=== PATIENT | female | born 1980 | race Caucasian/White ===

== ENCOUNTER 2023-10-08 00:45 | Emergency (ER) | payer SELFPAY ==
--- NOTE | 2023-10-08 01:06 | MHC.EDTECH ---
Patient brought to triage area,urine sample collected and sent to lab.
[2023-10-08 01:08] VITALS: BMI 27.8
[2023-10-08 01:09] LABS: Appearance Urine Clear; Color Urine Yellow; Glucose Urine UA Negative (Negative); Leukocyte Esterase Urine Moderate (2+) (Negative); Nitrite Urine Negative (Negative); Specific Gravity - Urine <= 1.005 (1.005-1.025); UMIC TRIGGER UACC YES; Urine Blood Negative (Negative); Urine Ketones Negative (Negative); Urine Protein Negative (Neg-Trace)
[2023-10-08 01:12] VITALS: BP 116/80; PULSE 67; RESP 18; TEMP 37.2; O2SAT 100
[2023-10-08 01:15] LABS: Bacteria Urine None Seen (None Seen); Hyaline Casts Urine 0-2 /LPF (0-2); RBC Urine 0-2 /HPF (0-2); Squamous Epithelial Cell Urine 0-2 /HPF (0-2); UACC Culture Trigger YES; WBC Urine 21-50 /HPF (0-5)
--- NOTE | 2023-10-08 01:16 | ED.GENADULT ---
HPI - General Adult General Chief complaint: General Medical Stated complaint: UTI Time Seen by Provider: 10/08/23 01:09 Source: patient, RN notes reviewed and old records reviewed Mode of arrival: ambulatory Limitations: no limitations History of Present Illness HPI narrative: 43-year-old female presents for evaluation of ?I think I have a UTI. ? 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 She woke up at 8:30 p.m., 5 hours ago complaining of burning with urination, lower abdominal pain and urinary frequency Patient reports that she gets some I frequent UTIs and her last UTI was about 2 months ago She feels pretty confident that she has a urinary tract infection. She is currently on her menstrual cycle Denies any abnormal discharge Denies any fevers or chills Related Data Previous Rx's ?Medication ?Instructions ?Recorded nitrofurantoin 100 mg PO Q12H 5 days #10 caps 10/08/23 monohydrate/macrocrystals 100 mg capsule (Macrobid) Allergies Allergy/AdvReac Type Severity Reaction Status Date / Time cephalexin [From KEFLEX] Allergy Unknown UNKNOWN Verified 10/08/23 01:09 amoxicillin Allergy Unknown Verified 10/08/23 01:09 clindamycin Allergy Unknown Verified 10/08/23 01:11 Review of Systems Constitutional: Constitutional: Denies body ache(s), Denies chills and Denies fever(s) Cardiovascular: Cardiovascular: Denies chest pain Genitourinary: Genitourinary: Denies hematuria and Reports pelvic pain Comments: Reports burning with urination and urinary frequency Physical Exam ED Vital Signs: Vital Signs - 24 hr 10/08/23 01:12 Temperature 98.9 F Pulse Rate 67 Respiratory Rate 18 Blood Pressure 116/80 Pulse Oximetry 100 Oxygen Delivery Method Room Air BMI result Body Mass Index 27.8 Const General: healthy appearing, comfortable, no acute distress, alert and awake Nutritional Appearance: well nourished Orientation/consciousness: patient oriented x3 HENMT Head: Yes normocephalic and Yes atraumatic Eyes Eyelids: Yes eyelids normal Conjunctivae: conjunctivae normal Sclerae: sclerae normal Corneas: corneas normal Pupils: Equal, round and reactive pupils present EOM: EOMs intact bilaterally Neck Neck: Yes full ROM Resp Effort & Inspection: normal respiratory effort, able to speak in complete sentences and not labored GI Inspection: No distended Palpation (GI): Soft to palpation, not firm, nontender, no guarding and not rigid Skin General skin exam: elasticity normal Neuro General: patient oriented x3 Cranial nerves: Yes Equal, round and reactive pupils present and Yes Bilaterally intact EOM present Cognition (Neuro): normal cognition Extrem Other: Moving all extremities well without any obvious deformities Medical Decision Making Medical Decision Making MDM Narrative: 43-year-old female presents for evaluation of dysuria. Her symptoms started just a few hours ago. She denies any concern for sexually transmitted infections. She is currently on her menstrual cycle and is not concerned about . Denies any abnormal vaginal bleeding or discharge. Patient's urine shows moderate leukocyte esterase with 21-50 white blood cells. No squamous epithelial cells to suggesting contamination. We will treat with Macrobid for UTI. Patient's vital signs are stable, she is afebrile, no findings to suggest systemic infection Differential Diagnosis Differential Diagnoses: The differential diagnosis associated with the presentation includes UTI Cystitis Pelvic pain Dysuria Lab Data Labs: Lab Results 10/08/23 Range/Units 01:02 Urine Color Yellow Urine Appearance Clear Urine pH 7.0 (5.0-9.0) Ur Specific Roff <= 1.005 (1.005-1.025) Urine Protein Negative (Neg-Trace) mg/dL Urine Glucose (UA) Negative (Negative) mg/dL Urine Ketones Negative (Negative) mg/dL Urine Blood Negative (Negative) Urine Nitrite Negative (Negative) Ur Leukocyte Esterase Moderate (2+) H (Negative) Urine RBC 0-2 (0-2) /HPF Urine WBC 21-50 H (0-5) /HPF Ur Squamous Epith Cells 0-2 (0-2) /HPF Urine Bacteria None Seen (None Seen) Hyaline Casts 0-2 (0-2) /LPF Discharge Plan Discharge Clinical Impression: Urinary tract infection Patient Disposition: Home, Self-Care Instructions: Urinary Tract Infection in Women (ED) Additional Instructions: Take Macrobid twice daily for the next 5 days Drink lots of fluids Follow-up with your primary doctor Return for new or worsening symptoms Prescriptions: New nitrofurantoin monohyd/m-cryst [Macrobid] 100 mg capsule 100 mg PO Q12H 5 Days Qty: 10 0RF Rx Instructions: must administer with a meal/food Print Language: Portuguese
[2023-10-08] MEDS: Nitrofurantoin Monohyd/M-Cryst 100 MG CAPSULE PO (01:28)
[2023-10-08 01:30] VITALS: BP 116/80; PULSE 67; RESP 18; TEMP 37.2; O2SAT 100
--- OUTSIDE RECORDS SUMMARY | 2023-10-08 01:31 | XMS_ITS | Continuity of Care Document ---
Author Organization [facility] Address [address], [address] [place] [address]- Care Team Providers Care Stave Log Cut Off Saw Operator Name Role Phone Not on Staff, PCP Primary Care Physician Unavail able [place] [facility] [place] [facility] [address] [place], [place] [address] Attending Physician: Megan Avila DO Admitting Physician: Megan Avila DO Referring Physician: Max Scanlon MD Allergies, Adverse Reactions, Alerts Substance Reaction Severity Status clindamycin Active amoxicillin Active Keflex Active valACYclovir Rash Active Immunizations Given and Recorded Vaccine Date Status Refusal Reason tetanus/diphtheria/pertussis, acel(Tdap) 09/02/15 Given tetanus/diphtheria/pertussis, acel(Tdap) 01/13/12 Given tetanus/diphtheria/pertussis, acel(Tdap) 09/27/10 Given Medications Compression Stockings See Instructions, # 1 pair, Refills 2, Tot. Refills 2, Maintenance, surgical, knee length 20-30 mm Hg, 07/08/16 16:16:00, orthostatic syncope, Compound Start Date: 07/08/16 Status: Ordered Flovent HFA 44 mcg/inh inhalation aerosol 2 puffs, Inhalation, 2 times a day, # 11 Gm, 1 Refills, Maintenance, 09/13/17 8:20:00, Aerosol Start Date: 09/13/17 Status: Ordered ibuprofen 800 mg oral tablet 800 mg, 1, tablet, By Mouth, 3 times a day, PRN, # 60 tablet, Refills 0, Tot. Refills 0, Maintenance, for pain, 11/05/19 22:43:00 EDT, Route to Pharmacy Electronically, [facility] #[id number] Start Date: 11/05/19 Status: Ordered ProAir HFA 90 mcg/inh inhalation aerosol with adapter 2, puffs, Inhalation, Every 6 hours, PRN, # 1 each, Refills 0, Tot. Refills 0, Maintenance, 09/06/17 11:44:07, Aerosol, Route to Pharmacy Electronically, [id number], [facility]/pharmacy #1972 Start Date: 09/06/17 Status: Ordered Splint See Instructions, # 1 units, Maintenance, Left fifth finger splint Wear as tolerated, 08/13/17 8:17:24, Compound Start Date: 08/13/17 Status: Ordered Tylenol 325 mg oral capsule 2 capsule = 650 mg, By Mouth, Every 4 hours, PRN as needed for pain, # 90 capsule, 0 Refills, Maintenance, 11/05/19 22:43:00 EDT, Capsule, [facility] #[id number] Start Date: 11/05/19 Status: Ordered Zithromax Z-Daron 250 mg oral tablet 1 pack/packet, By Mouth, Once, as directed on package labeling, # 6 tablet, 0 Refills, Soft Stop, 08/31/17 11:45:46, Tablet Start Date: 08/31/17 Status: Ordered Social History Social History Type Response Smoking Status Never smoker entered on: 09/02/15 Sex Patient Care team information Care Team Personnel Name: Not on Staff, PCP Position: [facility] Physician (General Medicine) Member Role: PCP Name: Max Scanlon MD Position: [facility] WATER RESOURCE AGENT MD Member Role: Lifetime WATER RESOURCE AGENT Physician Address: Address: [address] [place] [address] Care Team Related Persons Name: TONIA MATUTE Address: home [address] [place] [id number] Name: ADIS MOE
--- OUTSIDE RECORDS SUMMARY | 2023-10-08 01:31 | XMS_ITS | Continuity of Care Document ---
Author Organization [facility] Address [address] [place] [address]- Care Team Providers Care Compressed Gas Equipment Mechanic Name Role Phone Coco DOTSON, Ashley Primary Care Physician [place] [facility] [place] 11/05/19 - 11/06/[address] [address]- [facility] Encounter Diagnosis Ectopic of right ovary(Final) - 11/05/19 Discharge Disposition: A-D/C Home Attending Physician: Emiliano Frost MD Admitting Physician: Emiliano Frost MD Referring Physician: Not on Staff, Referring MD Allergies, Adverse Reactions, Alerts Substance Reaction Severity Status Keflex Active valACYclovir Rash Active Immunizations Given [...] 11/05/19 22:43:00 EDT, Route to Pharmacy Electronically, [facility] #[id number] Start Date: 11/05/19 Status: Ordered oxyCODONE 5 mg oral tablet 5 mg, 1, tablet, By Mouth, Every 6 hours, PRN, for 3 days, # 15 tablet, Refills 0, Tot. Refills 0, Acute 11/08/19 22:44:00 EDT, for pain, 11/05/19 22:44:00 EDT, Route to Pharmacy Electronically, [facility] #[id number], Partial fill upon patient r... Start Date: 11/05/19 Stop Date: 11/08/19 Status: Ordered ProAir HFA 90 mcg/inh inhalation aerosol with adapter 2, puffs, Inhalation, Every 6 hours, PRN, # 1 each, Refills 0, Tot. Refills 0, Maintenance, 09/06/17 11:44:07, Aerosol, Route to Pharmacy Electronically, [id number], [facility]/pharmacy #1972 Start Date: 09/06/17 Status: Ordered Splint See Instructions, # 1 units, Maintenance, Left fifth finger splint Wear as tolerated, 08/13/17 8:17:24, Compound Start Date: 08/13/17 Status: Ordered Tylenol 325 mg oral capsule 2 capsule = 650 mg, By Mouth, Every 4 hours, PRN as needed for pain, # 90 capsule, 0 Refills, Maintenance, 11/05/19 22:43:00 EDT, Capsule, [facility] #[id number] Start Date: 11/05/19 Status: Ordered Zithromax Z-Daron 250 mg oral tablet 1 pack/packet, By Mouth, Once, as directed on package labeling, # 6 tablet, 0 Refills, Soft Stop, 08/31/17 11:45:46, Tablet Start Date: 08/31/17 Status: Ordered Vital Signs Most recent to oldest [Reference Range]: 1 2 3 Oxygen Saturation [94-100 %] 99 % (11/05/19 11:30 PM) 98 % (11/05/19 11:15 PM) 98 % (11/05/19 11:00 PM) Pulse Rate [55-90 bpm] 71 bpm (11/05/19 8:20 PM) 76 bpm (11/05/19 8:07 PM) 72 bpm (11/05/19 3:19 PM) Blood Pressure [90-138/55-84 mm Hg] 123/71mm Hg (11/05/19 11:30 PM) 120/62mm Hg (11/05/19 11:15 PM) 124/64mm Hg (11/05/19 11:00 PM) Respiratory Rate [16-30 br/min] 8 br/min *L* (11/05/19 11:30 PM) 13 br/min *L* (11/05/19 11:15 PM) 16 br/min (11/05/19 11:00 PM) Temperature [96.8-100.4 DegF] 98.3 DegF (11/05/19 11:15 PM) 97.7 DegF (11/05/19 10:15 PM) 98.2 DegF (11/05/19 8:20 PM) Liters per Minute 4 L/min (11/05/19 10:15 PM) Mode of Delivery (Oxygen) Room air (11/06/19 12:00 AM) Room air (11/05/19 11:30 PM) Room air (11/05/19 11:15 PM) Blood pressure sites Arm, right (11/05/19 10:15 PM) Arm, left (11/05/19 8:20 PM) Arm, right (11/05/19 8:07 PM) Temperature Route Oral (11/05/19 8:20 PM) Oral (11/05/19 8:07 PM) Oral (11/05/19 3:19 PM) Social History Social History Type Response Smoking Status Never smoker entered on: 09/02/15 Sex
--- OUTSIDE RECORDS SUMMARY | 2023-10-08 01:31 | XMS_ITS | Continuity of Care Document ---
Author [facility] Address [address], [address] [place] [address]- Care Team Providers Care Heel Gouger Name Role Phone Not on Staff, PCP Primary Care Physician Unavail able Encounter [facility] [place] Date(s): 03/19/23 - 06/26/23 [facility] [address] [place], [place] [address] Attending Physician: Megan Avila DO Admitting Physician: [...] 11/05/19 22:43:00 EDT, Route to Pharmacy Electronically, [facility] #[id number] Start Date: 11/05/19 Status: Ordered ProAir HFA 90 mcg/inh inhalation aerosol with adapter 2, puffs, Inhalation, Every 6 hours, PRN, # 1 each, Refills 0, Tot. Refills 0, Maintenance, 09/06/17 11:44:07, Aerosol, Route to Pharmacy Electronically, [id number], [facility]/pharmacy #1972 Start Date: 09/06/17 Status: Ordered Splint See Instructions, # 1 units, Maintenance, Left fifth finger splint Wear as tolerated, 08/13/17 8:17:24, Compound Start Date: 08/13/17 Status: Ordered Tylenol 325 mg oral capsule 2 capsule = 650 mg, By Mouth, Every 4 hours, PRN as needed for pain, # 90 capsule, 0 Refills, Maintenance, 11/05/19 22:43:00 EDT, Capsule, [facility] #[id number] Start Date: 11/05/19 Status: Ordered Zithromax Z-Daron 250 mg oral tablet 1 pack/packet, By Mouth, Once, as directed on package labeling, # 6 tablet, 0 Refills, Soft Stop, 08/31/17 11:45:46, Tablet Start Date: 08/31/17 Status: Ordered Social History Social History Type Response Smoking Status Never smoker entered on: 09/02/15 Sex Patient Care team information Care Team Personnel Name: Not on Staff, PCP Position: [facility] Physician (General Medicine) Member Role: PCP Name: Max Scanlon MD Position: [facility] CAREER PLACEMENT SERVICES COUNSELOR MD Member Role: Lifetime CAREER PLACEMENT SERVICES COUNSELOR Physician Address: Address: [address] [place] [address] Care Team Related Persons Name: TONIA MATUTE Address: home [address] [place] [id number] Name: ADIS MOE
--- OUTSIDE RECORDS SUMMARY | 2023-10-08 01:31 | XMS_ITS | Continuity of Care Document ---
Author Organization [facility] ter Address [address] [place] [id number]- Care Team Providers Care Handbag Parts Cutter Name Role Phone Not on Staff, PCP Primary Care Physician Unavail able Encounter [facility] [place] Date(s): 05/05/22 - 05/05/[address] [address]- Encounter Diagnosis UTI (urinary tract infection)(Final) - 05/05/22 Discharge Disposition: A-D/C Home Attending Physician: Kailee Addison MD Admitting Physician: Kailee Addison MD Referring Physician: Not on Staff, Referring MD Allergies, Adverse Reactions, Alerts Substance Reaction Severity Status clindamycin Active amoxicillin Active Keflex Active valACYclovir Rash Active Immunizations Given and Recorded Vaccine Date Status Refusal Reason tetanus/diphtheria/pertussis, acel(Tdap) 09/02/15 Given tetanus/diphtheria/pertussis, acel(Tdap) 01/13/12 Given tetanus/diphtheria/pertussis, acel(Tdap) 09/27/10 Given Medications Bactrim DS 800 mg-160 mg oral tablet 1 tablet, By Mouth, 2 times a day, for 3 days, # 6 tablet, 0 Refills, Acute 05/08/22 19:00:00 EST, 05/05/22 19:00:00 EST, Tablet, [facility]/pharmacy #[id number], Partial fill upon patient request if the prescription is for a schedule II opioid drug., 1 tablet By... Start Date: 05/05/22 Stop Date: 05/08/22 Status: Ordered Compression Stockings See Instructions, # 1 pair, [...] 11/05/19 22:43:00 EDT, Route to Pharmacy Electronically, [facility] #[id number] Start Date: 11/05/19 Status: Ordered ProAir HFA 90 mcg/inh inhalation aerosol with adapter 2, puffs, Inhalation, Every 6 hours, PRN, # 1 each, Refills 0, Tot. Refills 0, Maintenance, 09/06/17 11:44:07, Aerosol, Route to Pharmacy Electronically, [id number], [facility]/pharmacy #1972 Start Date: 09/06/17 Status: Ordered Splint See Instructions, # 1 units, Maintenance, Left fifth finger splint Wear as tolerated, 08/13/17 8:17:24, Compound Start Date: 08/13/17 Status: Ordered Tylenol 325 mg oral capsule 2 capsule = 650 mg, By Mouth, Every 4 hours, PRN as needed for pain, # 90 capsule, 0 Refills, Maintenance, 11/05/19 22:43:00 EDT, Capsule, [facility] #[id number] Start Date: 11/05/19 Status: Ordered Zithromax Z-Daron 250 mg oral tablet 1 pack/packet, By Mouth, Once, as directed on package labeling, # 6 tablet, 0 Refills, Soft Stop, 08/31/17 11:45:46, Tablet Start Date: 08/31/17 Status: Ordered Vital Signs Most recent to oldest [Reference Range]: 1 2 3 Height 160 cm (05/05/22 7:28 PM) 160 cm (05/05/22 3:34 PM) Weight 62 kg (05/05/22 7:28 PM) 62 kg (05/05/22 3:34 PM) Oxygen Saturation [94-100 %] 99 % (05/05/22 7:28 PM) 100 % (05/05/22 3:34 PM) 100 % (05/05/22 3:24 PM) Pulse Rate [55-90 bpm] 66 bpm (05/05/22 7:28 PM) 69 bpm (05/05/22 3:34 PM) 74 bpm (05/05/22 3:24 PM) Body Mass Index [18.5-24.99 kg/m2] 24.22 kg/m2 (05/05/22 3:34 PM) Blood Pressure [90-138/55-84 mm Hg] 108/65mm Hg (05/05/22 7:28 PM) 110/60mm Hg (05/05/22 3:34 PM) Respiratory Rate [16-30 br/min] 17 br/min (05/05/22 7:28 PM) 16 br/min (05/05/22 3:34 PM) Temperature [96.8-100.4 DegF] 98 DegF (05/05/22 7:28 PM) 98.0 DegF (05/05/22 3:34 PM) Mode of Delivery (Oxygen) Room air (05/05/22 7:28 PM) Room air (05/05/22 3:34 PM) Room air (05/05/22 3:24 PM) Blood pressure sites Arm, left (05/05/22 3:34 PM) Temperature Route Oral (05/05/22 7:28 PM) Oral (05/05/22 3:34 PM) Dry Weight 62 kg (05/05/22 7:28 PM) 62 kg (05/05/22 3:34 PM) Weight Obtained Via Patient/family state d (05/05/22 3:34 PM) Dry Weight Obtained Via Patient/family s tated (05/05/22 3:34 PM) Social History Social History Type Response Smoking Status Never smoker entered on: 09/02/15 Sex Note * Jose Luis Vega: PERFORM Event Display: Patient Education Leaflets Authored Date: [id number] Bladder Infection,??Female (Adult) ?? [id number] Bladder Infection,??Female (Adult) Urine normally doesn't have any germs (bacteria) in it. But bacteria can get into the urinary tractfrom the skin around the rectum. Or they can travel in the blood from other parts of the body. Oncethey are in your urinary tract, they can cause infection in these areas: ??? The urethra (urethritis) ??? The bladder (cystitis) ??? The kidneys (pyelonephritis) The most common place for an infection is in the bladder. This is called a bladder infection. This is one of the most common infections in women because women have a shorter urethra than men. Bacteria have a shorter distance to travel to reach the bladder.. Women who have gone through menopause also lose the protection from estrogen that lowers the chance of getting a UTI. And some women are at higher risk because of their genes. Most bladder infections are easily treated. They are not serious unless the infection spreads to the kidney. The terms bladder infection, UTI, and cystitis are often used to describe the same thing. But they are not always the same. Cystitis is an inflammation of the bladder. The??most common cause of cystitis is an infection. Symptoms The infection causes inflammation in the urethra and bladder. This causes many of the symptoms. Themost common symptoms of a bladder infection are: ??? Pain or burning when urinating ??? Having to urinate more often than normal ??? Urgent need to urinate ??? Only a small amount of urine comes out ??? Blood in urine ??? Belly (abdominal) discomfort. This is often in the lower belly above the pubic bone. ??? Lower back pain ??? Cloudy urine ??? Strong- or bad-smelling urine ??? Unable to urinate(urinary retention) ??? Unable to hold urine in (urinary incontinence) ??? Fever ??? Loss of appetite ??? Confusion (in older adults) ?? Causes Bladder infections are not contagious. You can't get one from someone else, from a toilet seat, or from sharing a bath. The most common cause of bladder infections is bacteria from the bowels. The bacteria get onto the skin around the opening of the urethra. From there, they can get into the urine. Then they travel upto the bladder, causing inflammation and infection. This often happens because of: ??? Wiping incorrectly after urinating. Always wipe from front to back. ??? Bowel incontinence ??? . Duringpregnancy urinary tract changes raise the risk for infection. ??? Procedures such as having a catheter put in ??? Older age ??? Not emptying your bladder. This can give bacteria a chance to grow in your urine. ??? Fluid loss (dehydration) ??? Constipation ??? Having sex ??? Using a diaphragm for control? Treatment Bladder infections are diagnosed by a urine test and urine culture. They are treated with antibiotics. They often??clear up quickly without problems. Treatment helps prevent a more serious kidney infection. ?? Medicines Medicines can help in the treatment of a bladder infection: ??? Take antibiotics until they are used up, even if you feel better. It's important to finish them to make sure the infection has cleared.??? You can use acetaminophen or ibuprofen for pain, fever, or discomfort, unless another medicine was prescribed. If you have long-term (chronic) liver or kidney disease, talk with your healthcare??provider before using??these medicines. Also talk with your provider if you've ever had a stomach ulcer or GI (gastrointestinal) bleeding, or are taking blood-thinner medicines. ??? If you are given??phenazopydridine to reduce burning with urination, it will make your urine a bright orange color. This can stain clothing. ?? Care and prevention These self-care steps can help prevent future infections: ??? Drink plenty of fluids. This helps toprevent dehydration and flush out your bladder. Do this??unless you must restrict fluids for other health reasons, or your healthcare provider told you not to. ??? Clean yourself correctly after going to the bathroom. Wipe from front to back after using the toilet. This helps prevent the spread of bacteria. ??? Urinate more often. Don't try to hold urine in for a long time. ??? Wear loose-fittingclothes and cotton underwear. Don't wear tight- fitting pants. ??? Improve your diet and prevent constipation. Eat more fresh fruits and vegetables, and??fiber. Eat less junk foods and fatty foods. ??? Don't have sex until your symptoms are gone. ??? Don't have caffeine, alcohol, and spicy foods. These can irritate your bladder. ??? Urinate right after you have sex to flush out your bladder. ??? If you use control pills and have frequent bladder infections, discuss it with your healthcare provider. ?? Follow-up care Call your healthcare provider if all symptoms are not gone after 3 days of treatment. This is especially important if you have repeat infections. If a culture was done, you will be told if your treatment needs to be changed. If directed, you cancall??to find out the results. If X-rays were done, you will be told if the results will affect your??treatment. ?? Call 911 Call 911 if any of the following occur: ??? Trouble breathing ??? Hard to wake up or??confusion ???Fainting (loss of consciousness) ??? Fast heart rate ?? When to get medical advice Call your healthcare provider right away if any of these occur: ??? Fever of 100.4??F (38.0??C) or higher, or as directed by your healthcare provider ??? Symptoms are not better??after 3 days of treatment ??? Symptoms get worse or you have new symptoms ??? Back or belly pain that gets worse ??? Repeated vomiting, or unable to keep medicine down ??? Weakness or dizziness ??? Vaginal discharge ??? Pain, redness, or swelling in the outer vaginal area (labia) ?? Last Reviewed Date: 2021 ?? [id number] [employer]. All rights reserved. This information is not intended as a substitute for professional medical care. Always follow your healthcare professional's instructions. ?? Patient Care team information Care Team Personnel Name: Not on Staff, PCP Position: [facility] Physician (General Medicine) Member Role: PCP Name: Max Scanlon MD Position: [facility] ROLL COVERER MD Member Role: [employer] ROLL COVERER Physician Address: Address: [address] [place] [address] [facility], [address] Name: Jose Luis Vega Position: [facility] Associate Professional Member Role: ED Physician Payroll Secretary Address: Address: [address] [place] [address] Name: Zakiya Rivas RN Position: [facility] ED RN W/OE and Tasks Member Role: Patient Care Provider Name: Kailee Addison MD Position: [facility] Resident Member Role: Admitting Physician Address: Address: [address] [place] [address] Care Team Related Persons Name: TONIA MATUTE Address: [address] [address] Name: ADIS MOE
--- OUTSIDE RECORDS SUMMARY | 2023-10-08 01:31 | XMS_ITS | Continuity of Care Document ---
Author Organization [facility] ter Address [address] [place] [address]- Care Team Providers Care Adaptive Physical Education Teacher Name Role Phone Not on Staff, PCP Primary Care Physician Unavail able Encounter [facility] Date(s): 05/13/23 - 07/30/[address] [address] Attending Physician: Max Scanlon MD Admitting Physician: Max Scanlon MD Referring Physician: Max Scanlon MD Allergies, Adverse [...] 11/05/19 22:43:00 EDT, Route to Pharmacy Electronically, [facility] #[id number] Start Date: 11/05/19 Status: Ordered ProAir HFA 90 mcg/inh inhalation aerosol with adapter 2, puffs, Inhalation, Every 6 hours, PRN, # 1 each, Refills 0, Tot. Refills 0, Maintenance, 09/06/17 11:44:07, Aerosol, Route to Pharmacy Electronically, [id number], [facility]1972 Start Date: 09/06/17 Status: Ordered Splint See Instructions, # 1 units, Maintenance, Left fifth finger splint Wear as tolerated, 08/13/17 8:17:24, Compound Start Date: 08/13/17 Status: Ordered Tylenol 325 mg oral capsule 2 capsule = 650 mg, By Mouth, Every 4 hours, PRN as needed for pain, # 90 capsule, 0 Refills, Maintenance, 11/05/19 22:43:00 EDT, Capsule, [facility] #[id number] Start Date: 11/05/19 Status: Ordered Zithromax Z-Daron 250 mg oral tablet 1 pack/packet, By Mouth, Once, as directed on package labeling, # 6 tablet, 0 Refills, Soft Stop, 08/31/17 11:45:46, Tablet Start Date: 08/31/17 Status: Ordered Social History Social History Type Response Smoking Status Never smoker entered on: 09/02/15 Sex Patient Care team information Care Team Personnel Name: Not on Staff, PCP Position: [facility] Physician (General Medicine) Member Role: PCP Name: Max Scanlon MD Position: [facility] EXTENSION CLERK MD Member Role: Lifetime EXTENSION CLERK Physician Address: Address: [address] [place] [address] [facility], [address] Care Team Related Persons Name: TONIA MATUTE Address: home [address] [place] [id number] Name: ADIS MOE
--- OUTSIDE RECORDS SUMMARY | 2023-10-08 01:31 | XMS_ITS | Continuity of Care Document ---
Author Organization [facility] [facility] Address [address], [address] [place] [address]- Care Team Providers Care Well Service Derrick Worker Name Role Phone Not on Staff, PCP Primary Care Physician Unavail able Encounter [facility] Date(s): 05/27/23 - 06/26/23 [facility] [address] [place], [place] [address] Attending Physician: AdmBeto bautista Admitting Physician: AdmtrBeto Referring Physician: Admtr, Ar8 Allergies, Adverse Reactions, Alerts Substance Reaction Severity [...] 11/05/19 22:43:00 EDT, Route to Pharmacy Electronically, [facility] #[id number] Start Date: 11/05/19 Status: Ordered ProAir HFA 90 mcg/inh inhalation aerosol with adapter 2, puffs, Inhalation, Every 6 hours, PRN, # 1 each, Refills 0, Tot. Refills 0, Maintenance, 09/06/17 11:44:07, Aerosol, Route to Pharmacy Electronically, [id number], [facility]/pharmacy #1972 Start Date: 09/06/17 Status: Ordered Splint See Instructions, # 1 units, Maintenance, Left fifth finger splint Wear as tolerated, 08/13/17 8:17:24, Compound Start Date: 08/13/17 Status: Ordered Tylenol 325 mg oral capsule 2 capsule = 650 mg, By Mouth, Every 4 hours, PRN as needed for pain, # 90 capsule, 0 Refills, Maintenance, 11/05/19 22:43:00 EDT, [id number] Start Date: 11/05/19 Status: Ordered Zithromax Z-Daron 250 mg oral tablet 1 pack/packet, By Mouth, Once, as directed on package labeling, # 6 tablet, 0 Refills, Soft Stop, 08/31/17 11:45:46, Tablet Start Date: 08/31/17 Status: Ordered Social History Social History Type Response Smoking Status Never smoker entered on: 09/02/15 Sex Patient Care team information Care Team Personnel Name: Not on Staff, PCP Position: [facility] Physician (General Medicine) Member Role: PCP Name: Max Scanlon MD Position: [facility] FINE PATCHER MD Member Role: Lifetime FINE PATCHER Physician Address: Address: [address] [place] [address] [address] Care Team Related Persons Name: TONIA MATUTE Address: home [address] [place] [id number] Name: ADIS MOE
--- OUTSIDE RECORDS SUMMARY | 2023-10-08 01:31 | XMS_ITS | Continuity of Care Document ---
Author Organization [facility] ter Address [address] [place] [address]- Care Team Providers Care Time Study Clerk Name Role Phone Not on Staff, PCP Primary Care Physician Unavail able [place] [facility] [place] 11/24/20 - 11/25/[address] [address]- Discharge Disposition: A-D/C Home Attending Physician: Tahira Smith MD Admitting Physician: Tahira Smith MD Referring Physician: Not on Staff, Referring [...] 11/05/19 22:43:00 EDT, Route to Pharmacy Electronically, [facility] #[id number] Start Date: 11/05/19 Status: Ordered ProAir HFA 90 mcg/inh inhalation aerosol with adapter 2, puffs, Inhalation, Every 6 hours, PRN, # 1 each, Refills 0, Tot. Refills 0, Maintenance, 09/06/17 11:44:07, Aerosol, Route to Pharmacy Electronically, [id number], [facility] Start Date: 09/06/17 Status: Ordered Splint See Instructions, # 1 units, Maintenance, Left fifth finger splint Wear as tolerated, 08/13/17 8:17:24, Compound Start Date: 08/13/17 Status: Ordered Tylenol 325 mg oral capsule 2 capsule = 650 mg, By Mouth, Every 4 hours, PRN as needed for pain, # 90 capsule, 0 Refills, Maintenance, 11/05/19 22:43:00 EDT, [facility]ule[id number] Start Date: 11/05/19 Status: Ordered Zithromax Z-Daron 250 mg oral tablet 1 pack/packet, By Mouth, Once, as directed on package labeling, # 6 tablet, 0 Refills, Soft Stop, 08/31/17 11:45:46, Tablet Start Date: 08/31/17 Status: Ordered Results Radiology Reports * Exam Date Time Procedure Performing Provider Status 11/25/20 12:25 AM Foot Min 3 Views Left Pranav Dennison son; Auth (Verified) Notes: (Foot Min 3 Views Left) Reason For Exam: with Pain;Trauma RESULT: Foot Min 3 Views Left Ankle Min 3 Views Left, Foot Min 3 Views Left Hx of Present Illness: pt was walking and suddenly heard a pop in her L ankle. +swelling and bruising; 10 10 pain with movement; Reason: Trauma; with Pain; Clinical Question(s): Fracture. COMPARISON: None. FINDINGS: No evidence of acute or healing fracture or bone lesion. Intact ankle mortise and talar dome. No arthritic changes. Normal soft tissues. IMPRESSION: No acute displaced fracture. I have personally reviewed the images and I agree with this report. WSN: [id number] Ordering Physician: Susan Bautista Dictated By: Wiliam Welch MD Dictated Date/Time: 11/25/20 8:40 am Reviewed By: Joan Galloway MD Signed By: Joan Galloway MD Signed Date/Time: 11/25/20 8:45 am Transcribed By: ANGIE Transcribed Date/Time: 11/25/20 8:15 am * Exam Date Time Procedure Performing Provider Status 11/25/20 12:25 AM Ankle Min 3 Views Left Jesi , All tano; Auth (Verified) Notes: (Ankle Min 3 Views Left) Reason For Exam: with Pain;Trauma RESULT: Ankle Min 3 Views Left Ankle Min 3 Views Left, Foot Min 3 Views Left Hx of Present Illness: pt was walking and suddenly heard a pop in her L ankle. +swelling and bruising; 10 10 pain with movement; Reason: Trauma; with Pain; Clinical Question(s): Fracture. COMPARISON: None. FINDINGS: No evidence of acute or healing fracture or bone lesion. Intact ankle mortise and talar dome. No arthritic changes. Normal soft tissues. IMPRESSION: No acute displaced fracture. I have personally reviewed the images and I agree with this report. WSN: [id number] Ordering Physician: Susan Bautista Dictated By: Wiliam Welch MD Dictated Date/Time: 11/25/20 8:40 am Reviewed By: Joan Galloway MD Signed By: Joan Galloway MD Signed Date/Time: 11/25/20 8:45 am Transcribed By: ANGIE Transcribed Date/Time: 11/25/20 8:15 am Vital Signs Most recent to oldest [Reference Range]: 1 2 Oxygen Saturation [94-100 %] 100 % (11/25/20 12:04 AM) Pulse Rate [55-90 bpm] 57 bpm (11/25/20 12:04 AM) Blood Pressure [90-138/55-84 mm Hg] 114/ 72mm Hg (11/25/20 12:04 AM) Respiratory Rate [16-30 br/min] 20 br/mi n (11/25/20 3:56 AM) 18 br/min (11/25/20 12:04 AM) Temperature [96.8-100.4 DegF] 99.0 DegF (11/25/20 12:04 AM) Mode of Delivery (Oxygen) Room air (11/25/20 12:04 AM) Blood pressure sites Arm, right (11/25/20 12:04 AM) Temperature Route Oral (11/25/20 12:04 AM) Social History Social History Type Response Smoking Status Never smoker entered on: 09/02/15 Sex
== END 2023-10-08 01:31 | disposition home or self-care (01) ==
LOC: HO.ED 01:30
PROVIDERS: Emergency Provider Internal Medicine
DX: N39.0 Urinary tract infection, site not specified (principal); Z87.440 Personal history of urinary (tract) infections
CPT/HCPCS: 81001; 87086; 99283; 99284

== ENCOUNTER 2023-10-18 07:36 | Emergency (ER) | payer SELFPAY ==
[2023-10-18 07:50] VITALS: BP 154/82; PULSE 66; RESP 18; TEMP 36.7; O2SAT 99; BMI 26.6
[2023-10-18 08:43] LABS: Appearance Urine Clear; Color Urine Yellow; Glucose Urine UA Negative (Negative); Leukocyte Esterase Urine Negative (Negative); Nitrite Urine Negative (Negative); PH 6.5 (5.0-9.0); Specific Gravity - Urine <= 1.005 (1.005-1.025); Urine Blood Negative (Negative); Urine Ketones Negative (Negative); Urine Protein Negative (Neg-Trace)
[2023-10-18 11:13] LABS: CT PCR DETECTED (Not Detect.); NG PCR NOT DETECTED (Not Detect.)
--- NOTE | 2023-10-18 11:23 | ED.FEMALEGU ---
HPI - Female Genitourinary General Chief complaint: Urogenital-Female Stated complaint: STD, chlamydia ? Time Seen by Provider: 10/18/23 09:48 Source: patient Mode of arrival: ambulatory Limitations: no limitations History of Present Illness HPI Narrative: 43-year-old female presents to ED for vaginal discharge. Patient's partner informed her that he tested positive for chlamydia and she should get treated. Patient admits to foul odor green vaginal discharge. patient states no medical history and is healthy Related Data Previous Rx's ?Medication ?Instructions ?Recorded nitrofurantoin 100 mg PO Q12H 5 days #10 caps 10/08/23 monohydrate/macrocrystals 100 mg capsule (Macrobid) doxycycline hyclate 100 mg capsule 100 mg PO BID 7 days #14 caps 10/18/23 metronidazole 500 mg tablet 500 mg PO BID 7 days #14 tabs 10/19/23 Allergies Allergy/AdvReac Type Severity Reaction Status Date / Time cephalexin [From KEFLEX] Allergy Unknown UNKNOWN Verified 10/08/23 01:09 amoxicillin Allergy Unknown Verified 10/08/23 01:09 azithromycin Allergy Rash Verified 10/18/23 07:53 clindamycin Allergy Unknown Verified 10/08/23 01:11 Review of Systems Review of Systems: green foul vaginal odor Yes all other systems are reviewed and are negative PMFSH Social History Social History Advance Directives: No Advance Directives Information Provided: No Physical Exam Vital Signs: Vital Signs: Last Vital Signs Temp 98.3 F 10/18/23 12:53 Pulse 69 10/18/23 12:53 Resp 16 10/18/23 12:53 BP 156/79 H 10/18/23 12:53 Pulse Ox 100 10/18/23 12:53 O2 Del Method Room Air 10/18/23 12:53 BMI result Body Mass Index 26.6 Const: General: cooperative, healthy appearing, comfortable, no acute distress, well developed, alert, awake and Physically active Orientation/consciousness: oriented to person, oriented to place, oriented to time and patient oriented x3 HEENT: Head: Yes normal to inspection, Yes No palpable skull fracture present, Yes normocephalic, Yes atraumatic and No abrasion Eyes: General: appearance normal, both eyes and all related structures Neck: Neck: Yes normal visual inspection, Yes full ROM, Yes no lymphadenopathy, Yes no meningeal signs, Yes trachea midline, Yes supple, No anterior neck swelling and No tender Chest: Chest palpation & inspection: normal inspection of the chest and normal palpation of entire chest wall Resp: Effort & Inspection: normal respiratory effort and able to speak in complete sentences Auscultation: clear to auscultation bilaterally Cardio: Jugular venous distension: no JVD Heart sounds: S1 normal heart sound present and S2 normal heart sound present GI: Inspection: Yes normal to inspection Palpation (GI): Soft to palpation, not firm, nontender, no guarding and not rigid : General: Yes no CVA tenderness External Female Exam: normal external appearance Speculum Exam - Vagina: abnormal vaginal discharge (green) malodorous Speculum Exam - Cervix: normal appearance of the cervix Bimanual exam- vagina & uterus: normal bimanual exam Bimanual Exam- Adnexa, other: normal adnexae Back/Spine/Pelvis: Back: no CVA tenderness and No back tenderness Skin: General skin exam: no rashes or lesions noted, elasticity normal and turgor normal Neuro: General: oriented to person, oriented to place, oriented to time, patient oriented x3, gait normal, tone normal, moves all extremities, Normal light touch and pain sensation, no meningeal signs, no focal motor deficits, CN's II-XI intact bilaterally and normal sensation to monofilament Extrem: General: Yes normal to inspection, Yes full ROM and Yes capillary refill normal Psych: Appearance: grossly normal, well kempt and not disheveled Medical Decision Making Medical Decision Making [facility] Narrative: 43 female presents to ED for exposure to chlamydia presently positive for chlamydia on urine test. Patient would like complete pelvic exam to check for other STDs. Patient states having unprotected sex since june with this partner. patient states no fever or chills. Patient treated emperically for syphyllis and chlamydia. gonohrrea is negative. patient given information for [facility] to be tested for HIV. Due to allergies patient will be given doxycline for syphillis and chlamydia. Differential Diagnosis Differential Diagnoses: The differential diagnosis associated with the presentation includes (CHlamydia, Gonorrhea, trich, BV, syphyliis, ) Admission/Observation Consideration of admission/observation: Escalation of care including admission/observation considered Lab Data [facility] Lab Attestation statement: I reviewed the patient's lab results. Labs: Lab Results 0410/18/23 10/18/23 Range/Units 08:33 12:23 12:41 Urine Color Yellow Urine Appearance Clear Urine pH 6.5 (5.0-9.0) Ur Specific [place] <= 1.005 (1.005-1.025) Urine Protein Negative (Neg-Trace) mg/dL Urine Glucose (UA) Negative (Negative) mg/dL Urine Ketones Negative (Negative) mg/dL Urine Blood Negative (Negative) Urine Nitrite Negative (Negative) Ur Leukocyte Esterase Negative (Negative) Urine Test NEGATIVE (NEGATIVE) T.pallidum Ab (EIA) Nonreactive (Nonreactive) Soila species DNA Cancelled Chlam trachomat DNA PCR DETECTED A (Not Detect.) Gardnerella DNA Probe Cancelled N.gonorrhoeae DNA (PCR) NOT DETECTED (Not Detect.) Trichomonas DNA Probe Cancelled Independent Historian Clinical information obtained from an independent historian. History obtained from or confirmed by: Other (patient) Prescription Management I considered prescription management with: Antibiotic Discharge Plan Discharge Clinical Impression: Chlamydia Patient Disposition: Home, Self-Care Instructions: Chlamydia (ED) Additional Instructions: You came back positive for chlamydia. Recommend being compliant with doxycycline. Recommend follow-up with [facility] for other testing such as HIV and other STDs. return to the ED immediately for any abdominal pain, flank pain, fever, chills, profuse vaginal discharge, fever, chills, nausea, vomiting, or any other concerning symptoms. Prescriptions: New doxycycline hyclate 100 mg capsule 100 mg PO BID 7 Days Qty: 14 0RF metronidazole 500 mg tablet 500 mg PO BID 7 Days Qty: 14 0RF No Action nitrofurantoin monohyd/m-cryst [Macrobid] 100 mg capsule 100 mg PO Q12H 5 Days Qty: 10 0RF Rx Instructions: must administer with a meal/food Stand Alone Forms: Work/School Release Interventions: ED Discharge Assessment Last Done: 10/18/23 12:53 Discharge Date/Time: 10/18/23 12:54 Print Language: Setswana
--- NOTE | 2023-10-18 12:42 | PC.NURSE ---
this RN w/ present during pelvic exam completed by PA. pt tolerated exam well, no c/o pain. swabs sent to lab
[2023-10-18 12:47] LABS: UPreg QC Valid YES; Urine Pregnancy NEGATIVE (NEGATIVE)
[2023-10-18 12:53] VITALS: BP 156/79; PULSE 69; RESP 16; RESP 18; TEMP 36.8; O2SAT 100
[2023-10-18 13:08] LABS: Syphilis Screen Nonreactive (Nonreactive)
== END 2023-10-18 12:54 | disposition home or self-care (01) ==
PROVIDERS: Physician Assistant; Emergency Provider Emergency Medicine
DX: A74.9 Chlamydial infection, unspecified (principal); Z72.51 High risk heterosexual behavior
CPT/HCPCS: 0353U; 36415; 81003; 81025; 86780; 87480; 87510; 87660; 99283

== ENCOUNTER 2024-06-17 09:07 | Emergency (ER) | payer OTHER, SELFPAY ==
--- NOTE | ~2024-06-17 | CT_ITS ---
EXAMINATION: CT ABDOMEN AND PELVIS WITHOUT CONTRAST CLINICAL INFORMATION: Right flank pain and hematuria COMPARISON: None available. TECHNIQUE: Multidetector volumetric imaging was performed from the superior aspect of the liver through the pubic symphysis. Sagittal and coronal reformatted images were obtained on the technologist's workstation. This CT examination was performed using dose optimization techniques as appropriate, variously including the following: *Automated exposure control *Adjustment of mA and/or kV according to patient size (this includes techniques or standardized protocols for targeted exams where dose is matched to indication/reason for exam; i.e. extremities or head) *Use of iterative reconstruction technique DLP: 488 mGy-cm FINDINGS: LUNG BASES: Partially visualized bilateral breast implants. No pneumothorax. No large pleural effusion. LIVER, GALLBLADDER, AND BILIARY TREE: The liver is normal in size, shape, and attenuation. No focal hepatic lesion or biliary ductal dilatation is present. The gallbladder is unremarkable with no evidence of radiopaque gallstones, gallbladder wall thickening, or obvious pericholecystic inflammatory changes. PANCREAS: Unremarkable. SPLEEN: Unremarkable. ADRENAL GLANDS: Unremarkable. KIDNEYS AND URETERS: The kidneys are normal in size, shape, and attenuation. No hydronephrosis, hydroureter, or calculi seen. No perinephric stranding. BLADDER: Unremarkable. GASTROINTESTINAL TRACT: The small and large bowel are unremarkable. The appendix is unremarkable. ABDOMINAL WALL: Small fat filled umbilical hernia. LYMPH NODES: No enlarged lymph nodes or size criteria. VASCULAR: Abdominal aorta is nonaneurysmal. PELVIC VISCERA: Anteverted uterus. OSSEOUS STRUCTURES: Sclerotic focus right pubic symphysis physically representing a bone island. CT/CT abdomen pelvis wo IV con IMPRESSION: 1. No acute process of the abdomen or pelvis identified. 2. No nephrolithiasis or hydronephrosis. 3. Small fat filled umbilical hernia. Electronically signed by: Jana Rider MD 06/17/2024 11:49 AM [facility]
[2024-06-17 09:10] VITALS: BP 122/80; PULSE 66; RESP 20; TEMP 36.6; O2SAT 97; BMI 26.4
[2024-06-17] MEDS: Ketorolac Tromethamine 30 MG/ML VIAL IM (09:41)
--- NOTE | 2024-06-17 09:43 | ED_ITS ---
HPI - Female Genitourinary General Chief complaint: Urogenital-Female Stated complaint: blood in urine painfull upon urination Time Seen by Provider: 06/17/24 09:18 Source: patient Mode of arrival: ambulatory Limitations: no limitations History of Present Illness ED Provider: Dangelo Conner PA-C HPI Narrative: 43-year-old female with history recurrent UTIs presents to the ER for evaluation of blood in her urine, dysuria and right-sided flank pain that started 4 days ago. She reports 1 episode of hematuria and right flank pain 4 days ago and it self resolved. symptoms returned yesterday and have persisted. she reports bladder pressure, urgency, frequency and dysuria which are typical of her usual UTI symptoms. no vaginal discharge. no n/v/d, fevers or abdominal pain. hx frequent UTIs and has not seen a urologist. MD elicited complaint: dysuria, flank pain and other (hematuria) Pertinent past history: recurrent UTIs Onset (ago): day(s) Location of symptoms: suprapubic Severity: moderate Quality of pain: burning and aching Consistency: constant Vaginal discharge: none Vaginal bleeding: none Urinary symptoms: Dysuria, Urgency, Frequency, Hematuria and Flank Pain Exacerbating factors: urination Relieving factors: none Associated symptoms: denies other symptoms Treatment prior to arrival: none Patient : No Related Data Previous Rx's ?Medication ?Instructions ?Recorded nitrofurantoin 100 mg PO Q12H 5 days #10 caps 10/08/23 monohydrate/macrocrystals 100 mg capsule (Macrobid) doxycycline hyclate 100 mg capsule 100 mg PO BID 7 days #14 caps 10/18/23 metronidazole 500 mg tablet 500 mg PO BID 7 days #14 tabs 10/19/23 nitrofurantoin 100 mg PO Q12H 7 days #14 caps 06/17/24 monohydrate/macrocrystals 100 mg capsule (Macrobid) phenazopyridine 100 mg tablet 100 mg PO TID PRN pain 6 doses #6 06/17/24 (Pyridium) tabs Allergies Allergy/AdvReac Type Severity Reaction Status Date / Time cephalexin [From KEFLEX] Allergy Unknown UNKNOWN Verified 06/17/24 09:13 amoxicillin Allergy Unknown Verified 06/17/24 09:13 azithromycin Allergy Rash Verified 06/17/24 09:13 clindamycin Allergy Unknown Verified 06/17/24 09:13 Penicillins Allergy Rash Verified 06/17/24 09:13 Review of Systems 2 Review of Systems: Yes all other systems are reviewed and are negative Physical Exam 2 Vital Signs: Vital Signs: Last Vital Signs Temp 97.8 F 06/17/24 12:07 Pulse 53 06/17/24 12:07 Resp 16 06/17/24 12:07 BP 133/75 06/17/24 12:07 Pulse Ox 100 06/17/24 12:07 O2 Del Method Room Air 06/17/24 12:07 BMI result Body Mass Index 26.4 Appearance: Alert. Oriented X3. No acute distress. Head: normocephalic, atraumatic. Eyes: Pupils equal, round and reactive to light. ENT: Pharynx normal. No tonsillar swelling or exudate. Neck: Normal inspection. Neck supple. CVS: Normal heart rate and rhythm. Pulses normal. Respiratory: No respiratory distress. Breath sounds normal. Abdomen: Soft and nontender. +BS x4. mild CVA tenderness on the right, none on the left Skin: Skin warm and dry. Normal skin color. Normal skin turgor. No rashes. Extremities: No lower extremity edema. No joint swelling. Neuro/psych: Oriented X 3. nonfocal Medications Administered Discontinued Medications Generic Name Dose Route Start Last Admin Trade Name Freq PRN Reason Stop Dose Admin Ketorolac Tromethamine 30 mg 06/17/24 09:24 06/17/24 09:41 Ketorolac Tromethamine 30 Mg/Ml Vial IM 06/17/24 09:25 30 mg ONCE ONE Administration Nitrofurantoin Macrocrystals 100 mg 06/17/24 11:53 06/17/24 12:03 Nitrofurantoin Monohyd/M-Cryst 100 Mg Capsule PO 06/17/24 11:54 100 mg ONCE ONE Administration Phenazopyridine HCl 100 mg 06/17/24 11:53 06/17/24 12:02 Phenazopyridine Hcl 100 Mg Tablet PO 06/17/24 11:54 100 mg ONCE ONE Administration Medical Decision Making Medical Decision Making MDM Narrative: 43 yo female with history of recurrent UTIs presnets to the ER for evaluation of right sided flank pain, hematuria, bladder pressure, urgency and frequency along w/ dysuria since yesterday. symptoms 1st started 4 days ago but self resolved. VSS on arrival. uncomfortable, given IM toradol w/ good effect. labs reasurring with no leukocytosis. normal renal function. UA w/ protein and blood. unable to assess for nitrites due to pigment. no WBC. CT scan of her abd/pelvis done and does not show peripephric stranding, no hydro, no stone. will treat with cystitis w/ pyridium and empiric course of abx given her symptoms. recommending follow up with PCP and urology stable for d/c home Differential Diagnosis Differential Diagnoses: The differential diagnosis associated with the presentation includes UTI, pyelonephritis, interstitial cystitis, kidney stone Admission/Observation Consideration of admission/observation: Escalation of care including admission/observation considered Lab Data MDM Lab Attestation statement: I reviewed the patient's lab results. Mild normocytic anemia, normal renal function, no major metabolic derangement, no leukocytosis 06/17/24 09:52 06/17/24 09:52 Labs: Lab Results 06/17/24 Range/Units 09:52 WBC 5.2 (4.8-10.8) X10*3/uL RBC 3.66 L (4.20-5.50) X10*6/uL Hgb 11.2 L (12.0-16.0) g/dl Hct 33.2 L (37.0-47.0) % MCV 90.7 (80.0-98.0) fL MCH 30.6 (27.0-33.0) pg MCHC 33.7 (31.0-35.0) g/dl RDW 11.9 (11.0-16.0) % Plt Count 273 (160-400) X10*3/uL MPV 10.1 (9.4-12.3) fL Immature Gran % (Auto) 0.2 (0.0-0.4) % Neut % (Auto) 54.8 (45-73) % Lymph % (Auto) 33.7 (20-40) % [place] % (Auto) 9.2 (2-11) % Eos % (Auto) 1.5 (0-4) % Baso % (Auto) 0.6 (0-2) % Lymph # (Auto) 1.8 (1.2-4.9) X10*3/uL [place] # (Auto) 0.5 (0.1-1.2) X10*3/uL Eos # (Auto) 0.1 (0.0-0.4) X10*3/uL Baso # (Auto) 0.0 (0.0-0.2) X10*3/uL Abs Immat Gran (auto) 0.01 (0.00-0.03) X10*3/uL Absolute Neuts (auto) 2.9 (2.0-8.3) x10*3/uL Absolute Nucleated RBC 0.000 (0.0-0.012) X10*3/uL Nucleated RBC % (auto) 0.0 (0.0-0.2) /100WBC Sodium 141 (135-145) mmol/L Potassium 3.8 (3.3-5.1) mmol/L Chloride 110 H (96-108) mmol/L Carbon Dioxide 24 (22-29) mmol/L Anion Gap 11 L (12-20) BUN 7 L (9-16) mg/dL Creatinine 0.70 (0.5-1.4) mg/dL Estim Creat Clear Calc 96.6 Estimated GFR > 60 Random Glucose 98 (60-115) mg/dL Calcium 9.0 (8.4-10.2) mg/dL Magnesium 2.0 (1.6-2.6) mg/dL Urine Color RED Urine Appearance Cloudy Urine pH 5.5 (5.0-9.0) Ur Specific [place] >= 1.030 H (1.005-1.025) Urine Protein 300 (3+) H (Neg-Trace) mg/dL Urine Glucose (UA) 100 H (Negative) mg/dL Urine Ketones Negative (Negative) mg/dL Urine Blood Large (3+) H (Negative) Urine Nitrite See Note (Negative) Ur Leukocyte Esterase Negative (Negative) Urine RBC >20 H (0-2) /HPF Urine WBC 0-5 (0-5) /HPF Ur Squamous Epith Cells 0-2 (0-2) /HPF Urine Bacteria None Seen (None Seen) Hyaline Casts 0-2 (0-2) /LPF Urine Test NEGATIVE (NEGATIVE) Independent Interpretation I performed an independent interpretation of an: CT Scan Interpretation: No significant hydronephrosis, no perinephric stranding, no appreciated ureteral stone Radiology Impression Discussion of test interpretation with radiology: I have reviewed the radiologist's reading. Prescription Management I considered prescription management with: Pain Medication and Antibiotic Chronic Conditions Patient?s care impacted by: Other (Recurrent UTI) Social Determinants Patient?s care significantly limited by Social Determinants of Health including: Other Social Determinant of Health (Insurance issues, unable to get PCP or have urology follow-up due to problems with her insurance company) Critical Care Time Critical Care Time Critical Care Time: No Discharge Plan Discharge Clinical Impression: Hematuria Qualifiers: Hematuria type: gross Qualified Code(s): R31.0 - Gross hematuria Patient Disposition: Home, Self-Care Instructions: Hematuria (ED) Additional Instructions: Your CT scan today showed no acute abnormalities your blood work was reassuring, normal kidney function your urine test showed blood and protein - this needs to be rechecked once your symptoms resolve to ensure resolution Take the prescribed antibiotics as directed, complete the entire course and do not miss any doses rest and drink plenty of fluids follow up with Urology - call for an appointment If you develop new or worsening symptoms call 911 or come back to the ER for further evaluation. Prescriptions: New nitrofurantoin monohyd/m-cryst [Macrobid] 100 mg capsule 100 mg PO Q12H 7 Days Qty: 14 0RF Rx Instructions: must administer with a meal/food phenazopyridine [Pyridium] 100 mg tablet 100 mg PO TID PRN (Reason: pain) Qty: 6 0RF No Action nitrofurantoin monohyd/m-cryst [Macrobid] 100 mg capsule 100 mg PO Q12H 5 Days Qty: 10 0RF Rx Instructions: must administer with a meal/food doxycycline hyclate 100 mg capsule 100 mg PO BID 7 Days Qty: 14 0RF metronidazole 500 mg tablet 500 mg PO BID 7 Days Qty: 14 0RF Referrals: [facility] [Provider Group] (recurrent UTIs, hematuria, ?interstitial cystitis) Stand Alone Forms: Work/School Release Interventions: ED Discharge Assessment Last Done: 06/17/24 12:07 Discharge Date/Time: 06/17/24 12:10 Print Language: Serbian
--- NOTE | 2024-06-17 09:43 | PC.NURSE ---
pt medicated for 10/10 rt flank pain, pt provided a urine which was shown to the provider with hematuria, tech to draw labs.
[2024-06-17 09:57] LABS: MANUAL DIFF FLAG NO
[2024-06-17 09:58] LABS: Basophils Percent Auto 0.6 % (0-2); Eosinophils Absolute Auto 0.1 X10*3/uL (0.0-0.4); Eosinophils Percent Auto 1.5 % (0-4); Hematocrit 33.2 % (37.0-47.0); Hemoglobin 11.2 g/dl (12.0-16.0); Imm Gran Abs Auto 0.01 X10*3/uL (0.00-0.03); Imm Gran Pct Auto 0.2 % (0.0-0.4); Lymphocytes Absolute Auto 1.8 X10*3/uL (1.2-4.9); Lymphocytes Percent Auto 33.7 % (20-40); Mean Corpuscular HGB Conc 33.7 g/dl (31.0-35.0); Mean Corpuscular Hemoglobin 30.6 pg (27.0-33.0); Mean Corpuscular Volume 90.7 fL (80.0-98.0); Mean Platelet Volume 10.1 fL (9.4-12.3); Monocytes Absolute Auto 0.5 X10*3/uL (0.1-1.2); Monocytes Percent Auto 9.2 % (2-11); Neutrophils Absolute Auto 2.9 x10*3/uL (2.0-8.3); Neutrophils Percent Auto 54.8 % (45-73); Platelet Count 273 X10*3/uL (160-400); Red Blood Count 3.66 X10*6/uL (4.20-5.50); Red Cell Distribution Width 11.9 % (11.0-16.0); White Blood Count 5.2 X10*3/uL (4.8-10.8)
[2024-06-17 10:00] VITALS: BP 133/75; PULSE 53; RESP 16; TEMP 36.6; O2SAT 100
[2024-06-17 10:05] LABS: UPreg QC Valid YES; Urine Pregnancy NEGATIVE (NEGATIVE)
[2024-06-17 10:09] LABS: Appearance Urine Cloudy; Color Urine RED; Glucose Urine UA 100 mg/dL (Negative); Leukocyte Esterase Urine Negative (Negative); PH 5.5 (5.0-9.0); Specific Gravity - Urine >= 1.030 (1.005-1.025); UMIC TRIGGER UACC YES; Urine Blood Large (3+) (Negative); Urine Ketones Negative (Negative); Urine Protein 300 (3+) mg/dL (Neg-Trace)
[2024-06-17 10:13] LABS: Anion Gap 11 (12-20); Blood Urea Nitrogen 7 mg/dL (9-16); Carbon Dioxide 24 mmol/L (22-29); Chloride 110 mmol/L (96-108); Creatinine Clr Calc Pharmacy 96.6; Estimated Glomerular Filt Rate > 60; Glucose Random 98 mg/dL (60-115); Potassium 3.8 mmol/L (3.3-5.1); Sodium 141 mmol/L (135-145)
[2024-06-17 10:28] LABS: Bacteria Urine None Seen (None Seen); Hyaline Casts Urine 0-2 /LPF (0-2); RBC Urine >20 /HPF (0-2); Squamous Epithelial Cell Urine 0-2 /HPF (0-2); WBC Urine 0-5 /HPF (0-5)
[2024-06-17] MEDS: Phenazopyridine HCL 100 MG TABLET PO (12:02)
[2024-06-17] MEDS: Nitrofurantoin Monohyd/M-Cryst 100 MG CAPSULE PO (12:03)
[2024-06-17 12:07] VITALS: BP 133/75; PULSE 53; RESP 16; TEMP 36.6; O2SAT 100
== END 2024-06-17 12:10 | disposition home or self-care (01) ==
PROVIDERS: Physician Assistant; Emergency Provider Emergency Medicine Emergency Medical Services
DX: R31.0 Gross hematuria (principal); R10.9 Unspecified abdominal pain; Z87.440 Personal history of urinary (tract) infections
CPT/HCPCS: 36415; 74176; 80048; 81001; 81003; 81025; 83735; 85025; 96372; 99283; 99284; J1885

== ENCOUNTER 2024-06-22 10:58 | Outpatient (AMB) | payer OTHER, SELFPAY ==
--- NOTE | 2024-06-22 11:00 | MHC.OFFVIS ---
Intake Visit Reasons: recurrent UTIs, hematuria, ?interstitial cystitis Intake Note: New patient is present to establish care for recurrent uti, hematuria, ? interstitisl cystitis Any Urology Medications: Macrobid Antibiotic Allergy: Amoxicillin, Penicillin, Azithromycin, Cephalexin, Clindamycin Blood Thinner: None PVR: 0ml Family History: Bladder Cancer? No Prostate Cancer? 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 Services Required: No Accompanied by: Self / Same As Patient Allergies cephalexin [From KEFLEX] Allergy (Unknown, Verified 06/22/24 11:16) UNKNOWN amoxicillin Allergy (Verified 06/22/24 11:16) Unknown azithromycin Allergy (Verified 06/22/24 11:16) Rash clindamycin Allergy (Verified 06/22/24 11:16) Unknown Penicillins Allergy (Verified 06/22/24 11:16) Rash Medication List - Last Reconciled 06/22/24 by Becka Daniel MD nitrofurantoin monohyd/m-cryst 100 mg (Macrobid) 100 mg PO Q12H 7 days phenazopyridine (Pyridium) 100 mg PO TID PRN 6 doses HPI Comments Details: Cindi is a 43-year-old female who is here for evaluation due to gross hematuria and recurrent UTIs. The patient states that she gets between 6-8 UTIs in a year and can be associated with sexual activity. She has allergies to multiple antibiotics Keflex, amoxicillin, azithromycin, clindamycin, penicillin. She states that several days ago she urinated and saw blood in the urine she initially thought it was the start of her menstrual cycle and placed a tampon in place but when she remove the tampon there was no blood and when she urinated again there was blood in the toilet. She began having bladder pressure and urgency and flank pain and went to the emergency room. A CT abdomen and pelvis without IV contrast was done negative for urolithiasis or suspicious renal parenchymal lesions. She was treated with 7 days Macrobid and Pyridium. She states the urinary symptoms have improved. I have discussed further evaluation with office cystoscopy, we will send urine for cytology. Will consider low-dose antibiotic post intercourse. Discussed to avoid dietary bladder irritants including caffeinated beverages in spicy foods. Review of Systems Const All systems reviewed & are unremarkable except as noted in HPI and below Reports no additional complaints Eyes Reports no additional complaints ENT Reports no additional complaints Card Reports no additional complaints Resp Reports no additional complaints GI Reports no additional complaints Reports as per HPI Musc Reports no additional complaints Skin/Breast Reports system reviewed and no additional complaints, except as documented Neuro Reports no additional complaints Psych Reports no additional complaints Endo Reports no additional complaints Zurdo/Lymph Reports no additional complaints Aller/Immun Reports no additional complaints Physical Exam Const General: cooperative, healthy appearing and no acute distress Orientation/consciousness: patient oriented x3 HEENT Head: Yes normal to inspection, Yes normocephalic and Yes atraumatic Eyes Conjunctivae: conjunctivae normal Neck Neck: Yes normal visual inspection and Yes trachea midline Chest Chest palpation & inspection: normal inspection of the chest Resp Effort & Inspection: normal respiratory effort Cardio Rate: regular rate GI Inspection: Yes normal to inspection Skin General skin exam: no rashes or lesions noted Neuro General: patient oriented x3 Extrem General: No edema Psych Appearance: grossly normal Office Procedures Post Void Residual Post Residual Void Post Void Residual (PVR): 0 [id number]-[id number] Void Residual by ultrasound Results AMB Urinalysis, Automated UA Leukoctes 15 Raphael/uL Last Edit by Lori Villa CMA on 06/22/24 11:26 UA Nitrite Negative Last Edit by Lori Villa CMA on 06/22/24 11:26 UA Urobilinogen 0.2 mg/dL Last Edit by Lori Villa CMA on 06/22/24 11:26 UA Protein 0 mg/dL Last Edit by Lori Villa CMA on 06/22/24 11:26 UA pH 6.0 Last Edit by Lori Villa CMA on 06/22/24 11:26 UA Blood 10 Mason/uL Last Edit by Lori Villa CMA on 06/22/24 11:26 UA Specific [place] 1.025 Last Edit by Lori Villa CMA on 06/22/24 11:26 UA Ketone Negative Last Edit by Lori Villa CMA on 06/22/24 11:26 UA Bilirubin 0 mg/dL Last Edit by Lori Villa CMA on 06/22/24 11:26 UA Glucose 0 mg/dL Last Edit by Lori Villa CMA on 06/22/24 11:26 Results Reviewed Results Reviewed: Laboratory Last Values Urine pH (Auto) 6.0 06/22/24 11:18 Specific [place] (Auto) 1.025 06/22/24 11:18 Urine Protein (Auto) 0 mg/dL 06/22/24 11:18 Glucose (UA)(Auto) 0 mg/dL 06/22/24 11:18 Urine Ketones (Auto) Negative 06/22/24 11:18 Urine Blood (Auto) 10 Mason/uL 06/22/24 11:18 Urine Nitrite (Auto) Negative 06/22/24 11:18 Urine Bilirubin (Auto) 0 mg/dL 06/22/24 11:18 Urine Urobilinogen (Auto) 0.2 mg/dL 06/22/24 11:18 Leukocyte Esterase (Auto) 15 Raphael/uL 06/22/24 11:18 Date of Service: 06/17/24 CT ABDOMEN AND PELVIS WITHOUT CONTRAST CLINICAL INFORMATION: Right flank pain and hematuria COMPARISON: None available. TECHNIQUE: Multidetector volumetric imaging was performed from the superior aspect of the liver through the pubic symphysis. Sagittal and coronal reformatted images were obtained on the technologist's workstation. This CT examination was performed using dose optimization techniques as appropriate, variously including the following: *Automated exposure control *Adjustment of mA and/or kV according to patient size (this includes techniques or standardized protocols for targeted exams where dose is matched to indication/reason for exam; i.e. extremities or head) *Use of iterative reconstruction technique DLP: 488 mGy-cm FINDINGS: LUNG BASES: Partially visualized bilateral breast implants. No pneumothorax. No large pleural effusion. LIVER, GALLBLADDER, AND BILIARY TREE: The liver is normal in size, shape, and attenuation. No focal hepatic lesion or biliary ductal dilatation is present. The gallbladder is unremarkable with no evidence of radiopaque gallstones, gallbladder wall thickening, or obvious pericholecystic inflammatory changes. PANCREAS: Unremarkable. SPLEEN: Unremarkable. ADRENAL GLANDS: Unremarkable. KIDNEYS AND URETERS: The kidneys are normal in size, shape, and attenuation. No hydronephrosis, hydroureter, or calculi seen. No perinephric stranding. BLADDER: Unremarkable. GASTROINTESTINAL TRACT: The small and large bowel are unremarkable. The appendix is unremarkable. ABDOMINAL WALL: Small fat filled umbilical hernia. LYMPH NODES: No enlarged lymph nodes or size criteria. VASCULAR: Abdominal aorta is nonaneurysmal. PELVIC VISCERA: Anteverted uterus. OSSEOUS STRUCTURES: Sclerotic focus right pubic symphysis physically representing a bone island. IMPRESSION: 1. No acute process of the abdomen or pelvis identified. 2. No nephrolithiasis or hydronephrosis. 3. Small fat filled umbilical hernia. Assessment & Plan Assessment & Plan (1) Gross hematuria: Code(s): R31.0 - Gross hematuria Category: Medical (2) Recurrent UTI: Code(s): N39.0 - Urinary tract infection, site not specified Category: Medical Plan Gross hematuria. Patient was seen in the ED. A CT abdomen and pelvis without IV contrast was done negative for urolithiasis or suspicious renal parenchymal lesions. She was treated with 7 days Macrobid and Pyridium. She states the urinary symptoms have improved. I have discussed further evaluation with office cystoscopy, we will send urine for cytology. Will consider low-dose antibiotic post intercourse. Discussed to avoid dietary bladder irritants including caffeinated beverages in spicy foods. Orders: Orders AMB Urinalysis Automated Today Z13.9 - Encounter for screening, unspecified AMB Post Void Residual by ultrasound Today N39.0 - Urinary tract infection, site not specified Medications: Discontinued nitrofurantoin monohyd/m-cryst 100 mg (Macrobid) must administer with a meal/food Discontinued Reason: Patient Completed Course 100 mg PO Q12H 5 days 10 caps 0RF doxycycline hyclate Discontinued Reason: Patient no longer taking 100 mg PO BID 7 days 14 caps 0RF metronidazole Discontinued Reason: Patient no longer taking 500 mg PO BID 7 days 14 tabs 0RF Patient Instructions: The patient had an opportunity to ask questions regarding treatment plan. The patient expressed understanding and agreement with the above treatment plan. The patient is aware they should contact our office by phone for worsening of their current condition or the appearance of new symptoms. Compliance is encouraged with any medications and followup testing that is ordered. It is a privilege to be allowed the opportunity to participate in the urologic care of your patient. If you have any questions or concerns regarding treatment for the above conditions please do not hesitate to contact me. The office telephone contact is [phone]. This note is constructed in part using voice recognition software. While every effort has been made to ensure accuracy stripper latex errors may have been included. Yours sincerely, Becka Daniel MD Coding Level of Care Code New Pt Level 4 (87896) Diagnoses Gross hematuria R31.0 Recurrent UTI N39.0 CPT Codes Post Residual Void - PVR CPT Code: 34494-Jdwn Void Residual by ultrasound ([id number])
== END 2024-06-22 11:45 | disposition home or self-care (01) ==
PROVIDERS: Visit Provider Urology
DX: R31.0 Gross hematuria (principal); N39.0 Urinary tract infection, site not specified; Z13.9 Encounter for screening, unspecified
CPT/HCPCS: 99204

== ENCOUNTER 2024-06-22 10:58 | Outpatient (REF) | payer OTHER, SELFPAY ==
[2024-06-22 16:14] LABS: Urine Cytology See Pathology rpt
== END 2024-06-22 10:59 | disposition home or self-care (01) ==
LOC: HO.LAB 10:58
PROVIDERS: Visit Provider Urology
DX: R31.0 Gross hematuria (principal); N39.0 Urinary tract infection, site not specified; Z87.440 Personal history of urinary (tract) infections
CPT/HCPCS: 51798; 81003; 88112

== ENCOUNTER 2024-11-08 08:29 | Emergency (ER) | payer OTHER, SELFPAY ==
--- NOTE | ~2024-11-08 | XR_ITS ---
EXAMINATION: XR HAND, LEFT CLINICAL INFORMATION: ring finger pain/swelling. prior sx COMPARISON: None available. TECHNIQUE: PA, lateral, and oblique views of the left hand. FINDINGS: There has been arthrodesis of the DIP joint of the fourth digit. The fusion appears unremarkable and as expected. There is no fracture, dislocation, or suspicious bone lesion. There is normal alignment. Joint spaces appear normal otherwise. Soft tissues appear normal. XR/XR hand LT min 3V IMPRESSION: Arthrodesis of the DIP joint of the fourth digit without complication evident. The remainder of the examination is normal. Electronically signed by: Will Chery MD 11/08/2024 10:03 AM EDT
[2024-11-08 08:31] VITALS: BP 131/71; PULSE 59; RESP 16; TEMP 36.8; O2SAT 99; BMI 24.9
[2024-11-08] MEDS: Ketorolac Tromethamine 30 MG/ML VIAL IM (09:09)
--- NOTE | 2024-11-08 09:09 | ED.EXTPRO ---
HPI - Extremity Problem General Chief complaint: Extremity Injury, Upper Stated complaint: Swelling Ring Finger L Hand Time Seen by Provider: 11/08/24 08:47 Source: patient, RN notes reviewed and old records reviewed Mode of arrival: ambulatory History of Present Illness ED Provider: Portia Solis PA-C HPI Narrative: 44-year-old female with past medical history left 4th digit ORIF multiple years ago, presenting to the ED complaining of 1 week of increasing pain and swelling to left ring finger. Denies known injury/trauma or fall. Reports pain with ROM. Denies numbness, tingling, weakness, fever, drainage from area Related Data Previous Rx's ?Medication ?Instructions ?Recorded nitrofurantoin 100 mg PO Q12H 7 days #14 caps 06/17/24 monohydrate/macrocrystals 100 mg capsule (Macrobid) phenazopyridine 100 mg tablet 100 mg PO TID PRN pain 6 doses #6 06/17/24 (Pyridium) tabs acetaminophen 500 mg tablet 500 mg PO Q6H PRN fever or pain 11/08/24 (Tylenol Extra Strength) #14 tabs ketorolac 10 mg tablet 10 mg PO TID PRN pain 5 days #10 11/08/24 tabs Allergies Allergy/AdvReac Type Severity Reaction Status Date / Time cephalexin [From KEFLEX] Allergy Unknown UNKNOWN Verified 11/08/24 08:34 amoxicillin Allergy Unknown Verified 11/08/24 08:34 azithromycin Allergy Rash Verified 11/08/24 08:34 clindamycin Allergy Unknown Verified 11/08/24 08:34 Penicillins Allergy Rash Verified 11/08/24 08:34 Review of Systems Review of Systems: Yes all other systems are reviewed and are negative Constitutional: Constitutional: Reports as per HPI [facility] Past Medical History Attestation statement: The following information was validated with the patient. Source: old records reviewed Physical Exam Vital Signs: Vital Signs: Last Vital Signs Temp 97.7 F 11/08/24 11:07 Pulse 48 L 11/08/24 11:07 Resp 13 11/08/24 11:07 BP 123/72 11/08/24 11:07 Pulse Ox 99 11/08/24 11:07 O2 Del Method Room Air 11/08/24 11:07 BMI result Body Mass Index 24.9 Const: General: cooperative, healthy appearing and no acute distress Orientation/consciousness: patient oriented x3 Limitations: no limitations HEENT: Head: Yes normal to inspection and Yes atraumatic Ears: hearing grossly normal bilaterally General nose exam: Normal external nose present Face and sinus: Yes normal facial exam Eyes: General: appearance normal, both eyes and all related structures EOM: EOMs intact bilaterally Neck: Neck: Yes normal visual inspection and Yes no meningeal signs Resp: Effort & Inspection: normal respiratory effort and no respiratory distress Cardio: Rate: regular rate Skin: Rashes: no rashes Wounds: no wounds Neuro: General: patient oriented x3, tone normal and no meningeal signs Cranial nerves: Yes CN's II-XII intact bilaterally Gait exam (Neuro): Normal gait present Extrem: Other: Please refer to image above. Left 4th digit with appreciable swelling at PIP. Tender to palpation. No erythema/warmth, no fluctuance/induration. ROM to due to intact with pain. Postsurgical changes as noted above. General: Yes normal to inspection Course Course Course Narrative: 1053--XR hand LT min 3V IMPRESSION: Arthrodesis of the DIP joint of the fourth digit without complication evident. The remainder of the examination is normal. > Results discussed with patient including worrisome signs and symptoms and strict return precautions, and when to return to the emergency department. They verbalized understanding and feel safe for discharge at this time. Medications Administered Discontinued Medications Generic Name Dose Route Start Last Admin Trade Name Freq PRN Reason Stop Dose Admin Ketorolac Tromethamine 30 mg 11/08/24 09:01 11/08/24 09:09 Ketorolac Tromethamine 30 Mg/Ml Vial IM 11/08/24 09:02 30 mg ONCE ONE Administration Medical Decision Making Medical Decision Making [facility] Narrative: 44-year-old female with past medical history left 4th digit ORIF multiple years ago, presenting to the ED complaining of 1 week of increasing pain and swelling to left ring finger. On exam vital signs stable, NAD, nontoxic appearing, physical exam as noted above. Please refer to image. Concern for arthritic flare vs postsurgical complication. No evidence of cellulitis. Low suspicion for septic joint or abscess. Unlikely tenosynovitis. Plan: X-ray, pain control, re-evaluate Please refer to course for remaining clinical decision making, interpretation of labs/imaging results, and discussions with consultants and/or family members. Differential Diagnosis Differential Diagnoses: The differential diagnosis associated with the presentation includes As above Independent Interpretation I performed an independent interpretation of an: Plain X-Ray Radiology Impression Discussion of test interpretation with radiology: I have reviewed the radiologist's reading. External Record Review External record reviewed: Inpatient record, Office record, Outpatient record, Prior outpatient labs, Prior outpatient radiology, Primary care record and Outside ED record Tests considered The following testing was considered but not selected: As above Prescription Management I considered prescription management with: Pain Medication and Antibiotic Chronic Conditions Patient?s care impacted by: Other Social Determinants Patient?s care significantly limited by Social Determinants of Health including: Other Social Determinant of Health Discharge Plan Discharge Clinical Impression: Finger pain Patient Disposition: Home, Self-Care Instructions: Arthralgia (ED) Additional Instructions: Your x-ray is reassuring Ketorolac as an anti-inflammatory/pain medication, please take with food. DO NOT TAKE both ketorolac, Motrin/ibuprofen/Aleve or naproxen, only take 1 of these types of medications as they are the same class In addition take Tylenol Ice Follow-up with your primary care doctor and Orthopedics If area begins to look infected, is red, there is pus drainage or you have fever return to the ED Prescriptions: New ketorolac 10 mg tablet 10 mg PO TID PRN (Reason: pain) 5 Days Qty: 10 0RF acetaminophen [Tylenol Extra Strength] 500 mg tablet 500 mg PO Q6H PRN (Reason: fever or pain) Qty: 14 0RF No Action nitrofurantoin monohyd/m-cryst [Macrobid] 100 mg capsule 100 mg PO Q12H 7 Days Qty: 14 0RF Rx Instructions: must administer with a meal/food phenazopyridine [Pyridium] 100 mg tablet 100 mg PO TID PRN (Reason: pain) Qty: 6 0RF Referrals: [facility] [place] [facility] [place] [facility] [Provider Group] - 1 week Physician,None [Primary Care Provider] - 5 days Interventions: ED Discharge Assessment Last Done: 11/08/24 11:07 Discharge Date/Time: 11/08/24 11:07 Print Language: Maori
[2024-11-08 10:28] VITALS: BP 123/72; PULSE 48; RESP 13; TEMP 36.5; O2SAT 99
[2024-11-08 11:07] VITALS: BP 123/72; PULSE 48; RESP 13; TEMP 36.5; O2SAT 99
== END 2024-11-08 11:07 | disposition home or self-care (01) ==
PROVIDERS: Emergency Provider Emergency Medicine
DX: M79.645 Pain in left finger(s) (principal); Z79.899 Other long term (current) drug therapy
CPT/HCPCS: 73130; 96372; 99283; 99284; J1885

== ENCOUNTER → 2024-11-08 09:01 | Outpatient (BNV) | payer OTHER, SELFPAY | PROVIDERS: Emergency Provider Emergency Medicine; Visit Provider Radiology Diagnostic Radiology | DX: M79.642 Pain in left hand (principal) | CPT/HCPCS: 73130 ==

== ENCOUNTER 2024-11-27 07:44 | Outpatient (REF) | payer OTHER, SELFPAY | END 2024-11-27 07:45 | disposition home or self-care (01) | LOC: HO.HOSX 07:44 | DX: Z13.89 Encounter for screening for other disorder (principal) ==